=== PATIENT | female | born 1960 | race Caucasian/White ===

== ENCOUNTER → 2017-07-27 | Outpatient (CLI) | payer BC ==
[2017-07-27 13:28] LABS: ALBUMIN 3.5 gm/dl (3.1-4.5); ALKALINE PHOSPHATASE 71 U/L (45-117); BUN 14 mg/dl (7-24); CHLORIDE 101 mmol/L (98-107); CREATININE 0.72 mg/dL (0.55-1.02); IRON 82 ug/dL (50-170); LIPASE 113 U/L (73-393); POTASSIUM 3.8 mmol/L (3.5-5.1); SGOT/AST 13 IU/L (3-35); SGPT/ALT 20 U/L (12-78); SODIUM 135 mmol/L (136-145); TOTAL IRON BINDING CAPACITY 358 ug/dl (250-450); TOTAL PROTEIN 7.3 gm/dL (6.4-8.2)
[2017-07-27 13:34] LABS: THYROID STIM HORMONE (HS) 0.519 uIU/ml (0.358-4.75)
[2017-07-27 14:20] LABS: FERRITIN 44.7 ng/mL (10.0-291.0); VITAMIN D, 25-HYDROXY 26.9 ng/mL (30-100)
== END | disposition home or self-care (01) ==
LOC: LAB 12:31
PROVIDERS: Surgery
DX: E66.01 Morbid (severe) obesity due to excess calories (principal)